=== PATIENT | male | born 2000 | race Caucasian/White ===

== ENCOUNTER 2023-11-13 20:39 | Emergency (ER) | payer BC ==
[2023-11-13] MEDS: Ketorolac 30 MG/ML SDV IM ONE (22:02)
[2023-11-13] MEDS: Lidocaine 4% 1 each Patch TOP STA (22:02)
[2023-11-13 22:17] LABS: CORONAVIRUS COVID-19 NAA NEGATIVE (NEGATIVE); INFLUENZA A NAA NEGATIVE (NEGATIVE); INFLUENZA B NAA NEGATIVE (NEGATIVE); RESPIRATORY SYNCYTIAL VIR NAA NEGATIVE (NEGATIVE)
== END 2023-11-13 23:29 | disposition home or self-care (01) ==
LOC: MW.ED 20:39
DX: R07.81 Pleurodynia (principal); Z75.8 Other problems related to medical facilities and other health care; Z88.1 Allergy status to other antibiotic agents
CPT/HCPCS: 0241U; 71046; 96372; 99285; A9270; J1885; 99283

== ENCOUNTER 2024-08-26 20:42 | Emergency (ER) | payer BC ==
[2024-08-26] MEDS: Acetaminophen 325 MG Tab PO ONE (20:55)
[2024-08-26] MEDS: Ketorolac 30 MG/ML SDV IM ONE (20:57)
== END 2024-08-26 21:40 | disposition home or self-care (01) ==
LOC: MW.ED 20:42
DX: H92.01 Otalgia, right ear (principal); Z88.1 Allergy status to other antibiotic agents
CPT/HCPCS: 87428; 87651; 96372; 99283; A9270; J1885